=== PATIENT | male | born 1960 | race Caucasian/White ===

== ENCOUNTER 2016-12-21 08:17 | Day surgery (SDC) | payer BC ==
[2016-12-19 16:55] VITALS: BMI 23.7
[~2016-12-21 08:17] MED LIST: LACTATED RINGERS 1,000 ML IV SCH
[2016-12-21 09:01] VITALS: RESP 16; TEMP 96.7
[2016-12-21] MEDS ORDERED: LIDOCAINE 1% 20 ML VIAL (10MG/ML) FOR IV START INTRADERMA ONE (09:02)
[2016-12-21] MEDS ORDERED: fentaNYL (PF) 50 MCG/ML 2 ML AMP ONE (09:10)
[2016-12-21] MEDS ORDERED: MIDAZOLAM 2 MG/2 ML VIAL ONE (09:10)
[2016-12-21] MEDS ORDERED: PROPOFOL 10 MG/ML 20 ML VIAL IV ONE (09:10)
--- NOTE | 2016-12-21 09:25 | P.PCN ---
Date of Procedure: 12/21/16 Procedure(s) Performed: BRIEF HISTORY: Patient is a 56-year-old pleasant male, scheduled for an elective colonoscopy as a part of screening for colorectal neoplasia. PROCEDURE PERFORMED: Colonoscopy. PREOPERATIVE DIAGNOSIS: Screening for colon cancer. IV sedation per Anesthesia. PROCEDURE: After informed consent was obtained, the patient, was brought into the endoscopy unit. IV sedation was administered by Anesthesia under continuous monitoring. Digital rectal examination was normal. Initially the Olympus CF- 160 flexible video colonoscope was then inserted in the rectum, gradually advanced into the cecum without any difficulty. Careful examination was performed as the scope was gradually being withdrawn. Ileocecal valve and the appendiceal orifice were visualized and appeared normal. Prep was excellent. Mucosa of the cecum, ascending colon, transverse colon, descending colon, sigmoid colon, and rectum appeared normal. Scattered sigmoid diverticulosis seen. Retroflexion was performed in the rectum and no lesions were seen. The patient tolerated the procedure well. IMPRESSION: Normal-appearing colon from rectum to cecum with no evidence of colorectal neoplasia. Scattered sigmoid diverticulosis. RECOMMENDATIONS: Findings of this examination were discussed with the patient as well as his family. He was advised to have a repeat screening colonoscopy in 10 years.
[2016-12-21 09:51] VITALS: BP 109/75; PULSE 61
== END 2016-12-21 10:18 | disposition home or self-care (01) ==
LOC: ORWHC2ENDO 08:17
PROVIDERS: ATTEND Internal Medicine Gastroenterology
DX: Z12.11 Encounter for screening for malignant neoplasm of colon (principal); K57.30 Diverticulosis of large intestine without perforation or abscess without bleeding; Z79.1 Long term (current) use of non-steroidal anti-inflammatories (NSAID); Z79.899 Other long term (current) drug therapy
CPT/HCPCS: G0121; J2250; J3010; J2704

== ENCOUNTER → 2017-04-28 | Outpatient (CLI) | payer BC ==
--- NOTE | 2017-04-28 09:55 | MR ---
EXAMINATION TYPE: MR shoulder RT wo con DATE OF EXAM: 04/28/2017 COMPARISON: Outside x-ray dated 04/26/2017 HISTORY: Right shoulder pain TECHNIQUE: Multiplanar, multisequence imaging of the right shoulder is performed without contrast. FINDINGS: Rotator Cuff: There is intermediate signal thickening along the bursal surface supraspinatus tendon. At the inserti on appears to be area of partial through thickness tear measuring 5 x 7 mm with no retraction. Infraspinatus tendon appears intact. There is intrasubstance signal noted near the bursal surface of the infraspinatus tendon compatible with partial bursal surface tear. Subscapularis tendon demonstrates increased signal at its insertion compatible with tendinosis and pa rtial intrasubstance tear. No retraction. Acromioclavicular Joint: Hypertrophic change of the AC joint is noted identified the supraspinatus te ndon and muscle. Glenohumeral Joint: Mild narrowing of the glenohumeral joint. No joint effusion. Glenohumeral ligamen ts appear intact. Labrum: Abnormal morphology anterior superior labrum suspicious for tear. Biceps Tendon: Bicipital tendon is situated within the bicipital groove but there does appear to be e vidence of mild subluxation proximal coracoid process. No evidence of tendinous retraction. Biceps an chor has a normal appearance although there is increased signal within the intracapsular portion of t he tendon compatible with tendinosis. Bone marrow signal: Tiny cystic area within the humeral head likely related to chronic impingement me asuring less than a centimeter. Degenerative and post arthritic marrow changes involving the acromioc lavicular joint. IMPRESSION: 1. Impingement secondary to AC joint arthropathy with findings compatible with a partial through thic kness tear insertion anterior fibers supraspinatus tendon measuring 5 x 7 mm. 2. Tendinopathy involving the infraspinatus and subscapularis tendons with partial non through thickn ess tears as discussed above. 3. Anterior superior labral tear. 4. Bicipital tendinosis.
== END | disposition home or self-care (01) ==
LOC: RADMRIMAIN 09:09
PROVIDERS: ATTEND Orthopaedic Surgery
DX: S43.491A Other sprain of right shoulder joint, initial encounter (principal); M67.813 Other specified disorders of tendon, right shoulder; M75.41 Impingement syndrome of right shoulder; M12.811 Other specific arthropathies, not elsewhere classified, right shoulder

== ENCOUNTER → 2022-08-17 | Outpatient (CLI) | payer OTHER ==
--- NOTE | 2022-08-17 11:58 | FL ---
EXAMINATION TYPE: FL barium swallow DATE OF EXAM: 08/17/2022 11:44 AM COMPARISON: None CLINICAL INDICATION:Male, 62 years old with history of R13.10 DYSPHAGIA, UNSPECIFIED; PHH, TECHNIQUE: The procedure was explained and patient history elicited. All patient questions were ans wered prior to start of procedure. Multiple spot fluoroscopic images of the esophagus were obtained a fter the oral ingestion of effervescent crystals and liquid barium as the contrast agent. Fluoroscopic time: 38 seconds Fluoroscopic images: 137 Total DAP: 1459.90 FINDINGS: The esophagus demonstrates normal primary and secondary peristalsis. There are some mild tertiary co ntractions in the supine position. The esophageal mucosa is smooth without evidence of focal strictur e, ulceration, or abnormal outpouching. No gastroesophageal reflux disease was identified. Small sli ding type hiatal hernia was demonstrated in the supine position which reduces in the upright position . IMPRESSION: Small sliding-type hernia in the supine position which reduces in the upright position.
== END | disposition home or self-care (01) ==
LOC: RADUSWWP 10:56
PROVIDERS: ATTEND Otolaryngology
DX: R13.10 Dysphagia, unspecified (principal); K46.9 Unspecified abdominal hernia without obstruction or gangrene
CPT/HCPCS: 74220